=== PATIENT | male | born 1980 ===

== ENCOUNTER 2022-01-14 09:45 | Outpatient (CLI) | payer BC | END 2022-01-14 10:15 | disposition home or self-care (01) | LOC: ASH CLINIC 09:45 | DX: Z23 Encounter for immunization (principal); U07.1 COVID-19 ==

== ENCOUNTER → 2023-04-15 | Emergency (ER) | payer BC ==
[~2023-04-15] VITALS: Ht 167.6 cm; Wt 81.2 kg
== END | disposition left against medical advice (07) ==
LOC: ER 00:50
DX: Z53.21 Procedure and treatment not carried out due to patient leaving prior to being seen by health care provider (principal)